=== PATIENT | male | born 1955 | race Caucasian/White ===

== ENCOUNTER → 2018-07-23 07:53 | Outpatient (CLI) | payer OTHER, SELFPAY ==
[2018-07-23 11:11] LABS: Adenovirus F 40/41 Not Detected (Not Detect); Astrovirus Not Detected (Not Detect); Campylobacter Not Detected (Not Detect); Clostridium difficile toxin AB Not Detected (Not Detect); Cryptosporidium Not Detected (Not Detect); Cyclospora cayetanensis Not Detected (Not Detect); Entamoeba histolytica Not Detected (Not Detect); Enteroaggregative E.coli Not Detected (Not Detect); Enteropathogenic E.coli Not Detected (Not Detect); Enterotoxigenic E.coli It/st Not Detected (Not Detect); Giardia lamblia Not Detected (Not Detect); Norovirus GI/GII Not Detected (Not Detect); Plesiomonsa shigelloides Not Detected (Not Detect); Rotavirus A Not Detected (Not Detect); Salmonella Not Detected (Not Detect); Sapovirus Not Detected (Not Detect); Shiga-like toxin-prod E.coli Not Detected (Not Detect); Shigella/Enteroinvasive E.coli Not Detected (Not Detect); Vibrio Not Detected (Not Detect); Vibrio cholerae Not Detected (Not Detect); Yersinia enterocolitica Not Detected (Not Detect)
== END ==
PROVIDERS: Visit Provider Internal Medicine
DX: R19.7 Diarrhea, unspecified (principal)
CPT/HCPCS: 87507

== ENCOUNTER → 2018-09-22 08:04 | Outpatient (CLI) | payer OTHER, SELFPAY ==
--- NOTE | 2018-09-22 | DI.US.S_ITS ---
PROCEDURE: US ABDOMEN COMPLETE INDICATIONS: LIVER ENZYME ELEVATION TECHNIQUE: Real-time scanning was performed of the abdominal and retroperitoneal organs, with image documentation. COMPARISON: None. FINDINGS: Liver: Liver is normal in size and both dense and mildly heterogeneous in echotexture, generally hyperechoic. Gallbladder: The gallbladder measures normal in wall thickness and is free of calculus or tenderness. Biliary ducts: Intrahepatic bile ducts are non-dilated. Extrahepatic bile duct caliber measures 5.3 mm. Normal is 6-7 mm or less in diameter, or 10 mm or less post-cholecystectomy. Pancreas: Visualized portions of the pancreas are sonographically normal. Spleen: Spleen is normal in size and homogeneous in echotexture. Kidneys: Kidneys are normal in sizeand echotexture. Right kidney measures 11.1 cm long; left kidney measures 11.5 cm long. No hydronephrosis or nephrolithiasis on the right, and at the left kidney there is a probable 5 mm nonobstructive stone producing mild shadowing at the mid kidney.. No solid masses. Aorta: Visualized aorta is normal in caliber at less than 3 cm. Iliacs: Proximal common iliac arteries are normal in caliber at less than 2.5 cm. IVC: Intrahepatic inferior vena cava is patent. Miscellaneous: No free abdominal fluid. IMPRESSION: Echogenic hyperechoic dense liver echotexture consistent with cirrhosis/fatty infiltration. No biliary distention or mass is found. Incidental note is made of a nonobstructive 5 mm presumed calculus at the middle third nondistended collecting system of the left kidney. Dictated by: Jean Carlos Foster M.D. on 09/22/2018 at 11:14 Approved by: Jean Carlos Foster M.D. on 09/22/2018 at 11:16
[2018-09-22 10:24] LABS: Hep C Virus Ab w/Reflex Quant NEGATIVE s/c (NEGATIVE)
== END ==
PROVIDERS: PCP Internal Medicine; Visit Provider Internal Medicine
DX: R74.8 Abnormal levels of other serum enzymes (principal)
CPT/HCPCS: 36415; 76700; 86803

== ENCOUNTER → 2020-04-09 15:12 | Outpatient (CLI) | payer MEDICARE, OTHER, SELFPAY ==
[2020-04-11 08:27] LABS: COVID19 Sendout Not Detected (Not Detect)
== END ==
PROVIDERS: PCP Internal Medicine; Visit Provider Physician Assistant
DX: Z11.59 Encounter for screening for other viral diseases (principal)
CPT/HCPCS: 87635

== ENCOUNTER → 2020-04-12 12:50 | Outpatient (CLI) | payer MEDICARE, OTHER, SELFPAY ==
--- NOTE | 2020-04-18 08:20 | PM.PFT.1 ---
Pulmonary Function Test Referral & Results Date Patient Seen: 04/12/20 Requesting provider: Rigo Gardner Results: The spirometry demonstrates an FVC of 4.54 L which is 95% of predicted. The FEV1 was measured at 3.52 L which is 99% of predicted. The FEV1/FVC ratio was 78 which is 104% of predicted. Following the administration of bronchodilator there was no appreciable change to above normal numbers Lung volumes show an SVC of 4.28 L which is 89% of predicted. The diffusing capacity was measured at 24.68 which is 73% of predicted. No hemoglobin value was provided, so no correction for potential anemia could be made, if appropriate. The maximum voluntary ventilation was normal Interpretation: This study demonstrates normal spirometry but minimal reduction diffusing capacity suggesting the possibility of disease at the capillary alveolar level, unless patient is anemic
== END ==
PROVIDERS: PCP Internal Medicine; Referring Provider Internal Medicine; Visit Provider Internal Medicine
DX: R06.02 Shortness of breath (principal)
CPT/HCPCS: 94060; 94726; 94729

== ENCOUNTER → 2020-05-14 13:36 | Outpatient (CLI) | payer MEDICARE, OTHER, SELFPAY ==
[2020-05-14 15:11] LABS: COVID19 -Nasal RAPID Negative (Negative)
== END ==
PROVIDERS: PCP Internal Medicine; Visit Provider Physician Assistant
DX: Z11.59 Encounter for screening for other viral diseases (principal)
CPT/HCPCS: 87635

== ENCOUNTER → 2020-05-16 09:34 | Outpatient (CLI) | payer MEDICARE, OTHER, SELFPAY ==
--- NOTE | 2020-05-16 | DI.NM.S_ITS ---
PROCEDURE: NM TRACEY PERF SPECT REST & STR Rest and exercise myocardial perfusion SPECT with gated imaging and ejection fraction RADIOPHARMACEUTICAL: 12.9 mCi Tc-99m sestamibi IV at rest and 26.5 mCi Tc-99m sestamibi IV at peak exercise. A one day-protocol was performed. INDICATIONS: CHEST PAIN TECHNIQUE: Radiopharmaceutical was injected at peak stress test, and also at rest. SPECT images were obtained. SPECT myocardial perfusion images were displayed in short axis, horizontal long axis, and vertical long axis views. Gated images were reviewed using [employer] software. COMPARISON: None. CARDIAC STRESS: A standard [place] treadmill exercise tolerance test was performed by the patient under the supervision of an attending staff. The patient exercised for 7 minutes and 35 seconds; functional aerobic impairment (CATLAINO) is -1%. Hemodynamic data: There is normal blood pressure and heart rate response to exercise stress. Patient achieved 86% of maximum predicted heart rate at peak exercise. Symptoms: Patient denied chest pain during exercise. EKG: No diagnostic EKG changes of ischemia; no ectopy. FINDINGS: Raw data: There is good myocardial labeling by radiotracer. No significant motion artifacts. Jkfb-yh-qtikj ratio is 0.35 (normal is less than 0.38 for sestamibi tracer, and less than 0.50 for thallium tracer). Left ventricle function: Gated images demonstrate normal left ventricle wall thickening. No segmental wall motion abnormality. No transient ischemic dilation; TID is 0.28 (normal less than 1.3). The left ventricle resting end-diastolic volume is 119 mL. Left ventricle stress ejection fraction is 70%; normal values are above 45%. Myocardial perfusion: There is normal distribution of activity in the left and right ventricular myocardium. No fixed or reversible perfusion defects. IMPRESSION: low risk, normal treadmill nuclear stress test 1) No perfusion evidence of ischemia or infarction. 2) Normal left ventricular size, wall motion, and systolic function (EF post stress 70%). 3) No ECG evidence of ischemia. 4) No angina during the study. 5) Average exercise tolerance (8.5 METs, CATALINO -1%). Target heart rate achieved. Appropriate BP response to exercise. 6) No prior nuclear stress test available for comparison. Dictated by: Ana Mckinney MD on 05/16/2020 at 17:02 Approved by: Ana Mckinney MD on 05/16/2020 at 17:05
--- NOTE | 2020-05-16 15:20 | PM.TREADMILL ---
Cardiac Stress Test Report Referral & Results Date Patient Seen: 05/16/20 Time Patient Seen: 15:20 Requesting provider: Rigo Gardner Indication: chest pain Rest ECG: sinus rhythm Procedure Note: Standard delbert protocol, 7:35, 8.5 METS Good exercise capacity, CATALINO -1% Normal hemodynamic response to exercise No chest pain or angina symptoms No significant ST changes at peak exercise; no ectopy Impression: Normal exercise stress test Please note: Actual ECG tracings can be found in the PACS system.
== END ==
PROVIDERS: PCP Internal Medicine; Referring Provider Internal Medicine; Visit Provider Internal Medicine
DX: R07.9 Chest pain, unspecified (principal); R06.00 Dyspnea, unspecified; E11.9 Type 2 diabetes mellitus without complications
CPT/HCPCS: 78452; 93017; A9502

== ENCOUNTER → 2022-11-12 10:08 | Outpatient (CLI) | payer MEDICARE, OTHER, SELFPAY ==
[2022-11-12 12:20] LABS: Hematocrit 43.9 % (41-53); Hemoglobin 14.9 g/dL (13.5-17.5); Mean Corpuscular HGB Conc 33.9 % (30-36); Mean Corpuscular Hemoglobin 31.3 PG (26-34); Mean Corpuscular Volume 92.2 fL (80-100); Platelet Count 247 X10^3/uL (150-400); Red Blood Cell Count 4.76 X10^6/uL (4.5-5.9); Red Cell Distribution Width 14.1 % (11.6-14.8); White Blood Cell Count 5.1 X10^3/uL (4.5-11.0)
[2022-11-12 12:53] LABS: Alanine Aminotransferase 16 IU/L (<50); Albumin 4.4 g/dL (3.5-5.0); Albumin Globulin Ratio 1.8 (1.0-2.8); Alkaline Phosphatase 70 U/L (38-126); Aspartate Aminotransferase 31 IU/L (17-59); BUN Creatinine Ratio 27.2 (6-22); Bilirubin Total 1.1 mg/dL (0.2-1.3); Blood Urea Nitrogen 22 mg/dL (9-20); Calcium 9.4 mg/dL (8.4-10.2); Carbon Dioxide 28 mmol/L (22-32); Chloride 102 mmol/L (98-107); Cholesterol 251 mg/dL (140-199); Estimated Glomerular Filt Rate > 60 mL/min (>60); Globulin 2.5 g/dL (1.7-4.1); Glucose 118 mg/dL (80-110); HDL Cholesterol 72 mg/dL (40-60); HEMOLYSIS < 15 (0-50); LDL Cholesterol Calculated 150 mg/dL (<100); Potassium 4.2 mmol/L (3.4-5.1); Sodium 137 mmol/L (137-145); Total Protein 6.9 g/dL (6.3-8.2); Triglycerides 145 mg/dL (35-150)
[2022-11-12 13:24] LABS: Prostate Specific Antigen 2.86 ng/mL (0.10-4.00); TSH w/ Reflex to FT4 1.83 uIU/mL (0.47-4.68)
[2022-11-12 13:26] LABS: Testosterone 433 ng/dL (71.8-623)
[2022-11-13 04:27] LABS: x Labcorp Estim. Avg Glu (eAG) 131 mg/dL (.); x Labcorp Hemoglobin A1c 6.2 % (4.8-5.6)
== END ==
PROVIDERS: PCP Internal Medicine; Referring Provider Internal Medicine; Visit Provider Internal Medicine
DX: E78.2 Mixed hyperlipidemia (principal); N40.1 Benign prostatic hyperplasia with lower urinary tract symptoms; I10 Essential (primary) hypertension; K75.81 Nonalcoholic steatohepatitis (NASH); R79.89 Other specified abnormal findings of blood chemistry; N13.8 Other obstructive and reflux uropathy; R73.01 Impaired fasting glucose
CPT/HCPCS: 36415; 80053; 80061; 83036; 84153; 84403; 84443; 85027

== ENCOUNTER → 2023-05-18 09:22 | Outpatient (CLI) | payer MEDICARE, OTHER, SELFPAY ==
[2023-05-18 10:47] LABS: Hemoglobin A1C% w Est Avg Glu 6.5 % (4.0-6.0)
[2023-05-18 10:48] LABS: Aspartate Aminotransferase 26 IU/L (17-59); BUN Creatinine Ratio 21.1 (6-22); Blood Urea Nitrogen 19 mg/dL (9-20); Carbon Dioxide 25 mmol/L (22-32); Chloride 104 mmol/L (98-107); Cholesterol 136 mg/dL (140-199); Estimated Glomerular Filt Rate > 60 mL/min (>60); Glucose 145 mg/dL (80-110); HDL Cholesterol 46 mg/dL (40-60); HEMOLYSIS < 15 (0-50); LDL Cholesterol Calculated 74 mg/dL (<100); Sodium 138 mmol/L (137-145); Triglycerides 80 mg/dL (35-150)
== END ==
PROVIDERS: PCP Internal Medicine; Referring Provider Internal Medicine; Visit Provider Internal Medicine
DX: E78.2 Mixed hyperlipidemia (principal); R73.01 Impaired fasting glucose; I10 Essential (primary) hypertension
CPT/HCPCS: 36415; 80048; 80061; 83036; 84450

== ENCOUNTER → 2023-11-16 11:57 | Outpatient (CLI) | payer MEDICARE, OTHER, SELFPAY ==
[2023-11-16 13:33] LABS: HEMOLYSIS < 15 (0-50)
[2023-11-16 13:54] LABS: Prostate Specific Antigen 2.86 ng/mL (0.10-4.00)
[2023-11-16 14:00] LABS: BUN Creatinine Ratio 21.7 (6-22); Blood Urea Nitrogen 20 mg/dL (9-20); Calcium 9.2 mg/dL (8.4-10.2); Carbon Dioxide 25 mmol/L (22-32); Chloride 108 mmol/L (98-107); Estimated Glomerular Filt Rate > 60 mL/min (>60); Glucose 101 mg/dL (80-110); Potassium 3.8 mmol/L (3.4-5.1); Sodium 139 mmol/L (137-145)
== END ==
PROVIDERS: PCP Internal Medicine; Referring Provider Internal Medicine; Visit Provider Internal Medicine
DX: N40.1 Benign prostatic hyperplasia with lower urinary tract symptoms (principal); R73.01 Impaired fasting glucose; N13.8 Other obstructive and reflux uropathy; I10 Essential (primary) hypertension
CPT/HCPCS: 36415; 80048; 83036; 84153

== ENCOUNTER → 2025-05-09 16:04 | Outpatient (CLI) | payer MEDICARE, OTHER, SELFPAY ==
--- NOTE | 2025-05-09 16:06 | DI.RAD.S_ITS ---
PROCEDURE: XR LUMBAR SPINE 2-3V INDICATIONS: sciatica right side TECHNIQUE: 3 views of the lumbar spine were acquired. COMPARISON: None. FINDINGS: Bones: Transitional anatomy with 6 lumbar type [id number] vertebral bodies. For purposes of this dictation the 6 lumbar type [id number] vertebral bodies will be designated L1 through S1 with the last non-rudimentary disc designated S1-S2 There is mild, approximately 6 millimeters of L5-S1 anterolisthesis. There is mild, approximately 3-4 millimeters of L3-L4 and L4-L5 retrolisthesis. Mild degenerative disc disease throughout the lumbar spine. Mild L3-L4 and L4-L5 facet hypertrophy. Moderate L5-S1 and S1-S2 facet hypertrophy. No vertebral body compression fractures. No suspicious bony lesions. Soft tissues: Overlying bowel gas pattern is normal. No suspicious soft tissue calcifications. IMPRESSION: Transitional anatomy with 6 lumbar type [id number]-[id number] vertebral bodies and non- rudimentary S1-S2 disc. Multilevel degenerative disc disease. Multilevel facet arthropathy. No fracture. No acute osseous lesion. If symptoms and/or clinical suspicion for pathology persists, evaluation with MRI should be considered for further assessment. Dictated by: Ijeoma Sanz MD, PhD on 05/10/2025 at 8:59 Approved by: Ijeoma Sanz MD, PhD on 05/10/2025 at 9:04
[2025-05-09 17:35] LABS: Appearance Urine UA CLEAR; Bilirubin Urine UA NEGATIVE (NEGATIVE); Color Urine UA YELLOW; Glucose Urine UA NEGATIVE (Negative); Ketones Urine UA 1+ (NEGATIVE); Leukocyte Esterase Urine UA NEGATIVE (NEGATIVE); Nitrite Urine UA NEGATIVE (Negative); Occult Blood Urine UA NEGATIVE (Negative); Protein Urine UA NEGATIVE (Negative); Specific Gravity Urine UA 1.025 (1.000-1.035); Urobilinogen Urine UA 0.2 E.U./dL (0.2); pH Urine UA 5.5 (4.5-8.0)
[2025-05-09 18:18] LABS: Culture Indicated Urine Cult Not Indicated
== END ==
PROVIDERS: PCP Internal Medicine; Referring Provider Internal Medicine; Visit Provider Internal Medicine
DX: M54.31 Sciatica, right side (principal); N40.1 Benign prostatic hyperplasia with lower urinary tract symptoms; N13.8 Other obstructive and reflux uropathy
CPT/HCPCS: 72100; 81001

== ENCOUNTER → 2025-05-30 09:48 | Outpatient (CLI) | payer MEDICARE, OTHER, SELFPAY ==
[2025-05-30 10:57] LABS: Hemoglobin A1C% w Est Avg Glu 6.2 % (4.0-6.0)
[2025-05-30 11:31] LABS: Blood Urea Nitrogen 20 mg/dL (9-20); Calcium 9.4 mg/dL (8.4-10.2); Carbon Dioxide 24 mmol/L (22-32); Chloride 107 mmol/L (98-107); Cholesterol 257 mg/dL (140-199); Estimated Glomerular Filt Rate > 60 mL/min (>60); Glucose 125 mg/dL (70-99); HDL Cholesterol 80 mg/dL (40-60); HEMOLYSIS < 15 (0-50); Potassium 4.0 mmol/L (3.4-5.1); Sodium 139 mmol/L (137-145); Triglycerides 140 mg/dL (35-150)
[2025-05-30 12:00] LABS: Prostate Specific Antigen 5.15 ng/mL (0.10-4.00)
== END ==
PROVIDERS: PCP Internal Medicine; Referring Provider Internal Medicine; Visit Provider Internal Medicine
DX: N40.1 Benign prostatic hyperplasia with lower urinary tract symptoms (principal); R73.01 Impaired fasting glucose; E78.2 Mixed hyperlipidemia; N13.8 Other obstructive and reflux uropathy
CPT/HCPCS: 36415; 80048; 80061; 83036; 84153; 84450

== ENCOUNTER → 2025-06-05 18:34 | Outpatient (CLI) | payer MEDICARE, OTHER, SELFPAY ==
--- NOTE | 2025-06-05 18:35 | DI.MRI.S_ITS ---
PROCEDURE: MR LUMBAR SPINE WO CON INDICATIONS: right sciatica TECHNIQUE: Noncontrast sagittal T1 spin echo and T2 fast echo, sagittal STIR, and T2 fast spin echo through the lumbar spine. In cases with scoliosis, additional coronal T2 fast spin echo may be performed. COMPARISON: None. FINDINGS: Image quality: Diagnostic. Alignment and Curvature: Stepwise grade 1, 2 mm, retrolisthesis of L2 on L3 and L3 on L4. Grade 1, 2 mm, anterolisthesis of L4 on L5. L4 on L5. Bone Marrow: Marrow is of normal overall signal. No acute vertebral body compression fractures. Spinal Cord: Conus medullaris terminates at the L1 level. Visualized cord demonstrates normal signal and size. Paraspinous Soft Tissues: Right posterior interpolar mildly hyperintense 1.5 cm lesion T12-L1: Normal appearance. L1-L2: Normal appearance. L2-L3: Mildly desiccated disc which indents anterior thecal sac secondary to retrolisthesis. No spinal canal stenosis. No neural foraminal stenosis. L3-L4: Minimal spinal canal stenosis due to retrolisthesis disc uncovering, ligamentum flavum thickening, and facet arthrosis. There is a central inferior directed annular fissure. Mild bilateral neural foraminal stenosis due to retrolisthesis and facet arthrosis. L4-L5: Severe spinal canal stenosis and right lateral recess stenosis secondary to a medially directed right L4-5 facet synovial cyst, which measures 1.6 x 0.6 x 1.2 cm, ligamentum flavum thickening, and facet arthrosis. This results in severe right lateral recess stenosis. Right moderate to severe and left mild neural foraminal stenosis due to anterolisthesis, ligamentum flavum thickening, facet arthrosis, and the right facet synovial cyst. L5-S1: No spinal canal stenosis. No neural foraminal stenosis. IMPRESSION: 1. Severe spinal canal and right lateral recess stenosis at L4-5 secondary to degenerative changes and a 1.6 cm medially directed L4-5 facet synovial cyst. 2. Moderate to severe stenosis on the right at L4-5 secondary to degenerative changes and the right facet synovial cyst. 3. Right posterior interpolar 1.5 cm mildly T2 hyperintense lesion may represent a cyst. Recommend correlation with renal ultrasound. 4. Stepwise grade 1 retrolisthesis from L2-L4 and grade 1 anterolisthesis of L4 on L5. Dictated by: Hima Cardenas M.D. on 06/06/2025 at 8:43 Approved by: Hima Cardenas M.D. on 06/06/2025 at 8:49
== END ==
LOC: MRI 18:34
PROVIDERS: PCP Internal Medicine; Referring Provider Internal Medicine; Visit Provider Internal Medicine
DX: M54.31 Sciatica, right side (principal); M48.061 Spinal stenosis, lumbar region without neurogenic claudication; M43.16 Spondylolisthesis, lumbar region; M71.38 Other bursal cyst, other site
CPT/HCPCS: 72148